=== PATIENT | female | born 1980 | race Caucasian/White ===

== ENCOUNTER 2018-03-03 19:04 | Observation (INO) ==
[2018-03-03 19:27] VITALS: TEMP 98.7
--- NOTE | 2018-03-03 20:55 | ECG ---
Date Performed: 03/03/2018 Time Performed: 19:32:05 PTAGE: 37 years EKG: Sinus rhythm WITH SINUS ARRHYTHMIA POSSIBLE LEFT ATRIAL ENLARGEMENT NONDIAGNOSTIC INFERIOR Q WAVES BORDERLINE ECG PREVIOUS TRACING : 06/20/2010 12.00 Compared to previous tracing, heart rate has increased. DOCTOR: Junito Boykin Interpretating Date/Time 03/03/2018 20:54:10
[2018-03-03 22:22] LABS: Baso % (Auto) 0.4 % (0.0-2.0); Eos % (Auto) 0.1 % (0.0-4.0); Hemoglobin 13.8 gm/dL (11.6-15.3); Lymph # (Auto) 1.9 th/mm3 (1.0-4.8); Lymph % (Auto) 19.2 % (9.0-44.0); Mean Corpuscular HGB Conc 33.8 % (32.0-36.0); Mean Corpuscular Hemoglobin 28.8 pg (27.0-34.0); Mean Corpuscular Volume 85.4 fL (80.0-100.0); Mean Platelet Volume 7.8 fL (7.0-11.0); Mono # (Auto) 0.6 th/mm3 (0.0-0.9); Mono % (Auto) 5.6 % (0.0-8.0); Neut # (Auto) 7.5 th/mm3 (1.8-7.7); Neut % (Auto) 74.7 % (16.0-70.0); Platelet Count 340 th/mm3 (150-450); White Blood Count 10.1 th/mm3 (4.0-11.0)
[2018-03-03 22:29] LABS: Activated Partial Thrombo Time 29.5 sec (24.3-30.1); Prothrombin Time 10.2 sec (9.8-11.6)
[2018-03-03 22:54] LABS: Alanine Aminotransferase 17 U/L (10-53); Albumin 4.1 g/dL (3.4-5.0); Anion Gap 9 meq/L (5-15); Aspartate Aminotransferase 14 U/L (15-37); Blood Urea Nitrogen 7 mg/dL (7-18); Calcium 8.9 mg/dL (8.5-10.1); Carbon Dioxide 23.7 meq/L (21.0-32.0); Chloride 108 meq/L (98-107); Glomerular Filtration Rate 60 mL/min (>89); Glucose,Random 234 mg/dL (74-106); Magnesium 2.1 mg/dL (1.5-2.5); Potassium 3.8 meq/L (3.5-5.1); Sodium 141 meq/L (136-145)
--- NOTE | 2018-03-03 22:56 | XR ---
EXAM DATE: 03/03/2018 10:41 PM EDT AGE/SEX: 37 years / Female INDICATIONS: Shortness of breath. Chest pain. CLINICAL DATA: This is the patient's initial encounter. Patient reports that signs and symptoms have been present for 1 day and indicates a pain score of 4/10. MEDICAL/SURGICAL HISTORY: Hypertension. Diabetes mellitus type I. Smoker. None. COMPARISON: No prior exams available for comparison. FINDINGS: A single AP view of the chest demonstrates the lungs to be symmetrically aerated without evidence of mass, infiltrate or effusion. The cardiomediastinal contours are unremarkable. Osseous structures a re intact. CONCLUSION: No acute cardiopulmonary disease. Electronically signed by: Carlos Oseguera MD 03/03/2018 10:54 PM EDT
[2018-03-03 22:58] LABS: Alkaline Phosphatase 97 U/L (45-117); Total Protein 7.7 g/dL (6.4-8.2)
[2018-03-03] MEDS ORDERED: Sod Chloride 0.9% Inj 1,000 ML IV.SIG ONE (23:08)
--- NOTE | 2018-03-03 23:25 | ED ---
HPI General Chief Complaint: Chest Pain Stated Complaint: chest pressure Time Seen by Provider: 03/03/18 21:56 Source: patient Limitations: no limitations History of Present Illness HPI narrative: The patient is a 37 year old female who presents to the [facility] emergency department with a history of chest pain in the center of her chest and left side of the chest that she reports began again earlier today just before sunrise. She reports that the pain comes and goes. She reports that the pain is a pressure and tightening sensation. She reports that it comes even when she is resting. She reports that she feels like her heart is also racing. She reports having associated shortness of breath and nausea with this. She denies having any radiation of the pain. She reports that she has had diaphoresis today. The patient reports that the symptoms have gradually been worsening over the last 2 weeks, however intermittently she has had similar symptoms since 2014 when she was diagnosed with type 1 diabetes mellitus and was in DKA. Patient reports that her blood sugar was high earlier today at 260. She reports that she is on 7030 insulin 15 units twice a day. She last administered 15 units at approximately 8 PM. Her primary care physician is Dr. Vivar. She denies any prior history of cardiac disease. She cannot recall if she has ever had a stress test previously, however she has been diagnosed with mitral valve prolapse. On review of systems otherwise, the patient denies having any known recent fevers, cough, congestion, neck pain, abdominal pain, diarrhea, urinary symptoms, or neurologic symptoms. She reports that she did have 2 episodes of vomiting earlier today. The patient reports feeling lightheaded when these symptoms occur. LMP: One week ago. Complete Quality Measures for STEMI Alert Patients Related Data Home Medications Medication Instructions Recorded Confirmed duloxetine 30 mg PO BID 03/03/18 03/03/18 gabapentin 300 mg PO DAILY PRN 03/03/18 03/03/18 hydroxyzine pamoate 50 mg PO DAILY 03/03/18 03/03/18 quetiapine [Seroquel] 300 mg PO DAILY 03/03/18 03/03/18 Allergies Allergy/AdvReac Type Severity Reaction Status Date / Time penicillin G Allergy Unknown Hives Verified 03/03/18 19:23 Review of Systems ROS: all other systems reviewed are negative (Except for that which was mentioned in the HPI.) FORMERLY [facility], [facility] Medical History Medical History Diabetes (Acute) Mitral valve prolapse (Acute) Surgical History Surgical History S/P surgical manipulation of ankle joint (Acute) Social History Social History Substance History: Active Abuse Second Hand Smoke Exposure: No Smoking Status: Never smoker How Often Do You Have a Drink Containing Alcohol: Monthly or less Recent Travel in [facility] within the Last 8 Weeks: No Recent Out of Country Travel within the Last 8 Weeks: No Substance Abuse Detail Marijuana: Substance Use Status: Active Route Used Substance Abuse: Inhalation Immunization History Tetanus Immunization: <5 Years Hx Influenza Vaccine This Season: No Exam Const General: cooperative, no acute distress and well developed Nutritional Appearance: well nourished Orientation: alert, awake and oriented x3 HENMT Head: normocephalic and atraumatic Nose: no nasal discharge and no epistaxis Mouth: moist mucous membranes Throat: posterior oropharynx normal and uvula midline Eyes Sclera: normal sclerae Pupils: PERRL Neck Neck: no meningeal signs, trachea midline and no JVD Resp Effort & Inspection: no use of accessory muscles Auscultation: clear to auscultation bilaterally Cardio Rate: tachycardic (Sinus tachycardia in the 1 teens, no pulse deficits to the extremities on simultaneous auscultation and palpation of her radial artery.) Rhythm: regular rhythm Heart Sounds: no gallops, no murmurs and no rubs GI Inspection: non-distended Palpation: soft, no hepatosplenomegaly and nontender Auscultation: normal bowel sounds Back/Spine/Pelvis Back: no CVA tenderness Skin General: dry skin (warm) Neuro General: alert, awake and oriented x3 Cranial Nerves: other (No facial asymmetry.) Speech: speech normal Motor: no movement abnormalities noted Extrem General: normal to inspection (No calf tenderness on palpation. Negative Homans sign. No palpable cords. 2+ pulses to all 4 extremities.), no clubbing , no cyanosis and no edema Psych Mood: congruent mood Affect: normal affect Judgment: judgment good Course Initial Documented Vital Signs Temperature 98.7 F 03/03/18 19:23 Pulse Rate 88 03/03/18 19:23 Respiratory Rate 16 03/03/18 19:23 Blood Pressure 151/90 H 03/03/18 19:23 Pulse Oximetry 95 03/03/18 19:23 Last Documented Vital Signs Temperature 98.7 F 03/03/18 19:23 Pulse Rate 98 H 03/03/18 23:05 Respiratory Rate 18 03/03/18 23:05 Blood Pressure 126/79 03/03/18 23:05 Pulse Oximetry 98 03/03/18 23:05 Medical Decision Making MDM Narrative Medical decision making narrative: During the course of the patient's emergency department visit, the patient's history, examination, and differential diagnosis were reviewed with the patient. The patient was placed on a monitoring coordinator with oximetry and frequent blood pressure monitoring. The patient had IV access obtained and blood work sent for analysis. A diagnostic evaluation was started regarding the patient's chest pain, palpitations, reported lightheaded sensation. The patient was initially provided aspirin 324 mg p.o. 1, nitroglycerin sublingual 1, normal saline 1 L IV fluid bolus. The patient's diagnostic evaluation is remarkable for a white count of 10.1, platelets 340, neutrophils 74.7, hemoglobin 13.7, PT 10.2, PTT 29.5, chemistry is remarkable for troponin I of less than 0.02, glucose 234, lipase 501, creatinine 1.04, GFR 60, chloride 108, AST 14. An additional normal saline IV fluid bolus was administered. Magnesium was found to be within normal limits. TSH was within normal limits. The patient's chest x-ray showed no evidence of acute cardiopulmonary disease. The patient was agreeable with the plan to proceed with admission to the chest pain center for rule out serial cardiac enzyme protocol followed by stress testing. The patient's results were discussed with the patient, including the plan of care. I explained that further testing and/ or monitoring is indicated based on the patient's history, examination, and/ or laboratory findings. Therefore, I recommended admission for additional evaluation. The patient expressed understanding and was agreeable with this plan. The patient was admitted to the hospital in stable condition and sent to a bed under the care of the [facility]. Medical Screen Exam Complete: Yes Emergency Medical Condition: Yes Differential Diagnosis Differential Diagnosis: Acute coronary syndrome, versus dehydration, versus DKA , versus pulmonary embolism, versus pneumonia Medical Records Medical records reviewed: Yes I reviewed the patient's medical records. POC Test Results POC Urine Results: Negative Lab Data Lab results reviewed: Yes I reviewed the patient's lab results. Result diagrams: 03/03/18 22:00 03/03/18 22:00 Lab Results 03/03/18 03/03/18 03/03/18 Range/Units 22:00 22:00 22:00 WBC 10.1 (4.0-11.0) th/mm3 RBC 4.80 (4.00-5.30) mil/mm3 Hgb 13.8 (11.6-15.3) gm/dL Hct 41.0 (35.0-46.0) % MCV 85.4 (80.0-100.0) fL MCH 28.8 (27.0-34.0) pg MCHC 33.8 (32.0-36.0) % RDW 13.0 (11.6-17.2) % Plt Count 340 (150-450) th/mm3 MPV 7.8 (7.0-11.0) fL Neut % (Auto) 74.7 H (16.0-70.0) % Lymph % (Auto) 19.2 (9.0-44.0) % Hardee % (Auto) 5.6 (0.0-8.0) % Eos % (Auto) 0.1 (0.0-4.0) % Baso % (Auto) 0.4 (0.0-2.0) % Neut # (Auto) 7.5 (1.8-7.7) th/mm3 Lymph # (Auto) 1.9 (1.0-4.8) th/mm3 Hardee # (Auto) 0.6 (0.0-0.9) th/mm3 Eos # (Auto) 0.0 (0.0-0.4) th/mm3 Baso # (Auto) 0.0 (0.0-0.2) th/mm3 WBC Differential . Differential Comment Auto diff final PT (9.8-11.6) sec INR Ratio APTT (24.3-30.1) sec Sodium (136-145) meq/L Potassium (3.5-5.1) meq/L Chloride (98-107) meq/L Carbon Dioxide (21.0-32.0) meq/L Anion Gap (5-15) meq/L BUN (7-18) mg/dL Creatinine (0.50-1.00) mg/dL Estimated GFR (>89) mL/min Random Glucose (74-106) mg/dL Calcium (8.5-10.1) mg/dL Magnesium (1.5-2.5) mg/dL Total Bilirubin (0.2-1.0) mg/dL AST (15-37) U/L ALT (10-53) U/L Alkaline Phosphatase (45-117) U/L Troponin I (0.02-0.05) ng/mL B-Natriuretic Peptide 10 (0-100) pg/mL Total Protein (6.4-8.2) g/dL Albumin (3.4-5.0) g/dL Lipase 501 H (73-393) U/L TSH (0.358-3.740) uIU/mL 03/03/18 03/03/18 03/03/18 Range/Units 22:00 22:00 22:00 WBC (4.0-11.0) th/mm3 RBC (4.00-5.30) mil/mm3 Hgb (11.6-15.3) gm/dL Hct (35.0-46.0) % MCV (80.0-100.0) fL MCH (27.0-34.0) pg MCHC (32.0-36.0) % RDW (11.6-17.2) % Plt Count (150-450) th/mm3 MPV (7.0-11.0) fL Neut % (Auto) (16.0-70.0) % Lymph % (Auto) (9.0-44.0) % Hardee % (Auto) (0.0-8.0) % Eos % (Auto) (0.0-4.0) % Baso % (Auto) (0.0-2.0) % Neut # (Auto) (1.8-7.7) th/mm3 Lymph # (Auto) (1.0-4.8) th/mm3 Hardee # (Auto) (0.0-0.9) th/mm3 Eos # (Auto) (0.0-0.4) th/mm3 Baso # (Auto) (0.0-0.2) th/mm3 WBC Differential Differential Comment PT 10.2 (9.8-11.6) sec INR 1.0 Ratio APTT 29.5 (24.3-30.1) sec Sodium 141 (136-145) meq/L Potassium 3.8 (3.5-5.1) meq/L Chloride 108 H (98-107) meq/L Carbon Dioxide 23.7 (21.0-32.0) meq/L Anion Gap 9 (5-15) meq/L BUN 7 (7-18) mg/dL Creatinine 1.04 H (0.50-1.00) mg/dL Estimated GFR 60 L (>89) mL/min Random Glucose 234 H (74-106) mg/dL Calcium 8.9 (8.5-10.1) mg/dL Magnesium 2.1 (1.5-2.5) mg/dL Total Bilirubin 0.4 (0.2-1.0) mg/dL AST 14 L (15-37) U/L ALT 17 (10-53) U/L Alkaline Phosphatase 97 (45-117) U/L Troponin I Less than 0.02 L (0.02-0.05) ng/mL B-Natriuretic Peptide (0-100) pg/mL Total Protein 7.7 (6.4-8.2) g/dL Albumin 4.1 (3.4-5.0) g/dL Lipase (73-393) U/L TSH 1.050 (0.358-3.740) uIU/mL Imaging Data Radiologist's impression: Chest X-Ray 03/03/18 21:57 CONCLUSION: No acute cardiopulmonary disease. ECG Data Attestation: I personally reviewed and interpreted this ECG as follows: Interpretation: The patient had an EKG done on arrival that shows a normal sinus rhythm with a sinus arrhythmia, heart rate of 87, QRS duration 90 ms, QTC [address] segment elevation. T waves are inverted in V1. Discharge Plan Discharge Disposition Patient Disposition: 30 Still Patient Discharge Details Diagnosis: Chest pain, rule out acute myocardial infarction Physicians Team ED Provider: Naty Larose Primary Care Provider: Nicho Vivar Attending Provider: Renetta Rodriguez ED Status: Admitted Observation Patient
[2018-03-04] MEDS ORDERED: Sod Chloride 0.9% Inj 1,000 ML IV.SIG ONE (01:12)
[2018-03-04] MEDS ORDERED: Acetaminophen 500 MG Tablet PO PRN (02:44)
[2018-03-04] MEDS ORDERED: Sod Chloride 0.9% Inj 1,000 ML IV.CONT SCH (02:45)
[2018-03-04 04:21] LABS: Creatine Kinase 100 U/L (26-192)
[2018-03-04 06:48] LABS: Creatine Kinase 97 U/L (26-192)
[2018-03-04 08:05] VITALS: BP 146/92; PULSE 76; RESP 16; O2SAT 100
[2018-03-04] MEDS ORDERED: Famotidine 20 MG Tablet PO SCH (09:00)
--- NOTE | 2018-03-04 09:23 | P.HPCA ---
History of Present Illness Primary Care Physician: Nicho Vivar Chief Complaint: Chest pain History of Present Illness: This is a 37-year-old female with history of diabetes and possible hyperlipidemia that presents to ED with complaint of chest discomfort and palpitations. Patient states that she has had the symptoms for couple weeks. Intermittently. Lasting usually 5-10 minutes but last evening she had an episode lasting about 4 hours. She has not noticed to be associate with activity. She has really been short of breath. Rarely nauseous. Denies diaphoresis. States she had a cardiac evaluation in the past but this is 20 years ago which would have put her in her teens. Cannot recall ever having a stress test. States she was diagnosed as a teenager with mitral valve prolapse. Diagnosed with diabetes 3 years ago which time she is found to be in ketoacidosis. Currently denies complaints. Denies . Non-smoker. Denies family history of CAD. - Diagnosis (1) Chest pain (2) Palpitations (3) Diabetes Review of Systems General: Patient denies fevers, chills, and recent travel. HEENT: Patient denies headache, sore throat, difficulty swallowing. Cardiovascular: Has the chest discomfort as mentioned above. Has sensation of heart beating rapidly. Denies sensation of heart beating irregularly. No syncope. Respiratory: Rarely short of breath. Denies inspirational chest discomfort. Denies coughing wheezing or hemoptysis. GI: Rare nausea. Patient denies vomiting, diarrhea, abdominal pain, bloody stools. Musculoskeletal: Patient denies joint pain or edema. Denies calf pain or edema. Neurovascular: Patient denies numbness, tingling, weakness in extremities. Denies headache. Endocrine: Denies polyuria and polydipsia. Hematologic: Denies easy bruising. Skin: Denies rash or itching. PMFSH - History History Provided By: Patient - Medical History Medical History: Medical History (Last Reviewed 03/03/18 @ 23:22 by Naty Larose MD) Diabetes Mitral valve prolapse - Surgical History Surgical History: Surgical History (Last Reviewed 03/03/18 @ 23:22 by Naty Larose MD) S/P surgical manipulation of ankle joint - Tobacco History Second Hand Smoke Exposure: No Tobacco Use In Past 30 Days: No Smoking Status: Never smoker Tobacco Type: Cigarettes - Alcohol History How Often Do You Have a Drink Containing Alcohol: 2 to 4 times a month - Substance Use History Substance History: Active Abuse - Substance Use Type Marijuana Type: NARCOTICS, BENZOS, MARIJUANA Status: Active Route Used: By Mouth, Inhalation Reason for Use: Calm Down, Get High - Travel History Recent Travel in the [place] Within the Last 8 Weeks: No Recent Travel Out of the Country Within the Last 8 Weeks: No - Immunization History Tetanus Immunization: <5 Years Hx Influenza Vaccine This Season: No Medications and Allergies Active Medications: Active Medications Acetaminophen (Tylenol) 500 mg PO Q4H PRN PRN Reason: HEADACHE Famotidine (Pepcid) 20 mg PO BID NADER Sodium Chloride (Ns Inj) 1,000 mls @ 100 mls/hr IV.CONT .Q10H NADER Last Admin: 03/04/18 03:57 Dose: 100 mls/hr Sodium Chloride (Ns Flush) 2 ml IV.FLUSH UNSCH PRN PRN Reason: FLUSH AFTER USING IV ACCESS Sodium Chloride (Ns Flush) 2 ml IV.FLUSH BID NADER Sodium Chloride (Ns Flush) 2 ml IV.FLUSH PRN PRN PRN Reason: FLUSH AFTER USING IV ACCESS Allergies Allergy/AdvReac Type Severity Reaction Status Date / Time penicillin G Allergy Unknown Hives Verified 03/03/18 19:23 Home Medications Medication Instructions Recorded Confirmed Type duloxetine 30 mg PO BID 03/03/18 03/03/18 History gabapentin 300 mg PO DAILY PRN 03/03/18 03/03/18 History hydroxyzine pamoate 50 mg PO DAILY 03/03/18 03/03/18 History quetiapine [Seroquel] 300 mg PO DAILY 03/03/18 03/03/18 History Exam Vital signs: Vital Signs 03/03/18 19:23 03/03/18 21:57 03/03/18 23:05 Temperature 98.7 F Pulse Rate 88 98 H Respiratory Rate 16 18 Blood Pressure 151/90 H Blood Pressure [Left Arm] 126/79 Blood Pressure [Right Arm] 132/80 Pulse Oximetry 95 98 98 03/04/18 03:05 03/04/18 04:40 03/04/18 05:34 Temperature 98.7 F 98.7 F Pulse Rate 78 78 Respiratory Rate 18 18 18 Blood Pressure 117/74 117/74 Blood Pressure [Left Arm] Blood Pressure [Right Arm] Pulse Oximetry 97 97 03/04/18 07:52 03/04/18 08:00 Temperature 98.7 F Pulse Rate 68 76 Respiratory Rate 16 Blood Pressure 146/92 H Blood Pressure [Left Arm] Blood Pressure [Right Arm] Pulse Oximetry 100 Intake & Output 03/03/18 03/04/18 03/04/18 18:59 06:59 18:59 Intake Total 1999 Balance 1999 Weight 72.575 kg Intake: IV 1999 NS Inj 1,000 ML @ Wide Open IV. 1999 SIG BOLUS ONE Rx#:[id number] Other: # Voids 1 Narrative: GENERAL: This is a well-nourished, well-developed patient, in no apparent distress. Patient speaks in clear complete sentences. Patient is pleasant. HEENT: Head is atraumatic and normocephalic. Neck is supple without lymphadenopathy and trachea is midline. No JVD or carotid bruits. CARDIOVASCULAR: Regular rate and rhythm without murmurs, gallops, or rubs. RESPIRATORY: Clear to auscultation. Breath sounds equal bilaterally. No wheezes , rales, or rhonchi. Chest wall is nontender. No use of accessory muscles. GASTROINTESTINAL: Abdomen is nontender, nondistended. Abdomen soft. No obvious pulsatile mass or bruit. No CVA tenderness. Strong femoral pulses bilaterally. Normal bowel sounds in all quadrants. MUSCULOSKELETAL: Patient is moving upper and lower extremities freely. No calf tenderness or edema, no Homans sign. Strong pulses in upper and lower extremities. NEUROLOGICAL: Patient is alert and oriented. Cranial nerves 2-12 are grossly intact. No focal deficits and speech is clear. SKIN: No rash and turgor is normal. Results 03/03/18 22:00 03/03/18 22:00 Cardiac Enzymes 03/03/18 03/03/18 03/04/18 Range/Units 22:00 22:00 03:45 AST 14 L (15-37) U/L Troponin I Less than 0.02 L Less than 0.02 L (0.02-0.05) ng/mL B-Natriuretic Peptide 10 (0-100) pg/mL 03/04/18 Range/Units 05:50 AST (15-37) U/L Troponin I Less than 0.02 L (0.02-0.05) ng/mL B-Natriuretic Peptide (0-100) pg/mL Coagulation 03/03/18 03/03/18 Range/Units 22:00 22:00 PT 10.2 (9.8-11.6) sec APTT 29.5 (24.3-30.1) sec B-Natriuretic Peptide 10 (0-100) pg/mL CBC 03/03/18 Range/Units 22:00 WBC 10.1 (4.0-11.0) th/mm3 RBC 4.80 (4.00-5.30) mil/mm3 Hgb 13.8 (11.6-15.3) gm/dL Hct 41.0 (35.0-46.0) % Plt Count 340 (150-450) th/mm3 Neut # (Auto) 7.5 (1.8-7.7) th/mm3 Lymph # (Auto) 1.9 (1.0-4.8) th/mm3 Mccracken # (Auto) 0.6 (0.0-0.9) th/mm3 Eos # (Auto) 0.0 (0.0-0.4) th/mm3 Baso # (Auto) 0.0 (0.0-0.2) th/mm3 Comprehensive Metabolic Panel 03/03/18 Range/Units 22:00 Sodium 141 (136-145) meq/L Potassium 3.8 (3.5-5.1) meq/L Chloride 108 H (98-107) meq/L Carbon Dioxide 23.7 (21.0-32.0) meq/L BUN 7 (7-18) mg/dL Creatinine 1.04 H (0.50-1.00) mg/dL Calcium 8.9 (8.5-10.1) mg/dL AST 14 L (15-37) U/L ALT 17 (10-53) U/L Alkaline Phosphatase 97 (45-117) U/L Total Protein 7.7 (6.4-8.2) g/dL Albumin 4.1 (3.4-5.0) g/dL Intake and Output 03/03/18 03/04/18 03/04/18 22:59 06:59 14:59 Intake Total 1999 Balance 1999 Intake: IV 1999 NS Inj 1,000 ML @ Wide Open IV. 1999 SIG BOLUS ONE Rx#:[id number] Other: # Voids 1 Weight 72.575 kg EKG interpretations - EKG EKG shows: sinus rhythm (EKGs are sinus rhythm without significant ST segment depressions or elevations.) Caprini VTE Risk Assessment Caprini VTE Risk Assessment: No/Low Risk (score <= 1) Caprini Risk Assessment Model: Point Value = 1 Point Value = 2 Point Value = 3 Point Value = 5 Age 41-60 Minor surgery BMI > 25 kg/m2 Swollen legs Varicose veins or History of unexplained or recurrent spontaneous Oral contraceptives or hormone replacement Sepsis (< 1 month) Serious lung disease, including pneumonia (< 1 month) Abnormal pulmonary function Acute myocardial infarction Congestive heart failure (< 1 month) History of inflammatory bowel disease Medical patient at bed rest Age 61-74 Arthroscopic surgery Major open surgery (> 45 min) Laparoscopic surgery (> 45 min) Malignancy Confined to bed (> 72 hours) Immobilizing plaster cast Central venous access Age >= 75 History of VTE Family history of VTE Factor V Leiden Prothrombin [id number] Lupus anticoagulant Anticardiolipin antibodies Elevated serum homocysteine Heparin-induced thrombocytopenia Other congenital or acquired thrombophilia Stroke (< 1 month) Elective arthroplasty Hip, pelvis, or leg fracture Acute spinal cord injury (< 1 month) Prophylaxis Regimen: Total Risk Factor Score Risk Level Prophylaxis Regimen 0-1 Low Early ambulation 2 Moderate Order ONE of the following: *Sequential Compression Device (SCD) *Heparin 5000 units SQ BID 3-4 Higher Order ONE of the following medications: *Heparin 5000 units SQ TID *Enoxaparin/Lovenox 40 mg SQ daily (WT < 150 kg, CrCl > 30 mL/min) *Enoxaparin/Lovenox 30 mg SQ daily (WT < 150 kg, CrCl > 10-29 mL/min) *Enoxaparin/Lovenox 30 mg SQ BID (WT < 150 kg, CrCl > 30 mL/min) AND/OR *Sequential Compression Device (SCD) 5 or more Highest Order ONE of the following medications: *Heparin 5000 units SQ TID (Preferred with Epidurals) *Enoxaparin/Lovenox 40 mg SQ daily (WT < 150 kg, CrCl > 30 mL/min) *Enoxaparin/Lovenox 30 mg SQ daily (WT < 150 kg, CrCl > 10-29 mL/min) *Enoxaparin/Lovenox 30 mg SQ BID (WT < 150 kg, CrCl > 30 mL/min) AND *Sequential Compression Device (SCD) Assessment and Plan - Assessment (1) Chest pain Code(s): R07.9 - Chest pain, unspecified Status: Acute (2) Palpitations Code(s): R00.2 - Palpitations Status: Acute (3) Diabetes Code(s): E11.9 - Type 2 diabetes mellitus without complications Status: Acute - Plan * Chest pain: Patient had serial cardiac enzymes and EKGs were ruling out purposes. She was seen by Dr. Raza Henson of cardiology in the chest pain center. She will undergo a Kenroy protocol ETT. She will be discharged home if her stress test is nonischemic. Of note, a lipase was obtained in the ED and was mildly elevated at 501 however a repeated lipase in the chest pain center this morning is 101. No further evaluation. Follow up PCP. Return to ED for interval issues. * Palpitations: Patient's been in sinus rhythm while in chest pain center. Follow-up with PCP. * Hyperlipidemia: Patient states she has hyperlipidemia but is on medication. Patient has been instructed on importance of being on a statin medicine with a history of diabetes regardless of lipid status. She should be on a statin unless there is a contraindication. * Diabetes: Patient takes insulin at home. She will be on sliding scale insulin coverage while in chest pain center. Resume medication at home. Follow diabetic diet. Patient is stable at this time. She is agreeable to this plan. H&P: Quality - VTE Deep Vein Thrombosis/Pulmonary Embolism Present on Admission: No
[2018-03-04] MEDS ORDERED: Gabapentin 300 MG Capsule PO PRN (11:09)
--- NOTE | 2018-03-04 11:30 | ECG ---
Date Performed: 03/04/2018 Time Performed: 05:55:32 PTAGE: 37 years EKG: Sinus rhythm POSSIBLE LEFT ATRIAL ENLARGEMENT BORDERLINE ECG PREVIOUS TRACING : 03/04/2018 03.46 Since previous tracing, no significant change noted DOCTOR: Raza Henson Interpretating Date/Time 03/04/2018 11:28:09
--- NOTE | 2018-03-04 11:31 | ECG ---
Date Performed: 03/04/2018 Time Performed: 03:46:59 PTAGE: 37 years EKG: Sinus rhythm POSSIBLE LEFT ATRIAL ENLARGEMENT BORDERLINE RIGHT AXIS DEVIATION BORDERLINE ECG PREVIOUS TRACING : 03/03/2018 22.27 Since previous tracing, no significant change noted DOCTOR: Raza Henson Interpretating Date/Time 03/04/2018 11:28:56
--- NOTE | 2018-03-04 11:33 | ECG ---
Date Performed: 03/03/2018 Time Performed: 22:27:21 PTAGE: 37 years EKG: SINUS TACHYCARDIA WITH SHORT CT INTERVAL POSSIBLE LEFT ATRIAL ENLARGEMENT ABNORMAL RHYTHM E CG PREVIOUS TRACING : 03/03/2018 19.32 Since previous tracing, no significant change noted DOCTOR: Raza Henson Interpretating Date/Time 03/04/2018 11:30:48
--- NOTE | 2018-03-04 11:37 | TR ---
Date Performed: 03/04/2018 Time Performed: 10:22:50 DOCTOR: Raza Henson DRUG LIST: CLINICAL HISTORY: CHEST PAIN REASON FOR TEST: REASON FOR ENDING: OBSERVATION: CONCLUSION: KANNAN PROTOCOL ETT. NO CP. TEST STOPPED AFTER EXCEEDING GOAL HR SECONDARY TO SOB AND LEG FATIGUE.Maximum FA=808 % Max HR Achieved=90.0% Maximum PM=470/82 Total Exercise Time=7:01 COMMENTS: Patient exercised using the Kannan protocol. No electrocardiographic changes were seen to suggest ischemia. Hemodynamic response to exercise was normal. No significant arrhythmia was prese nt.
[2018-03-04] MEDS ORDERED: Insulin NovoLIN Regular Correctional Sugar Inj SQ SCH (12:00)
== END 2018-03-04 11:59 | disposition home or self-care (01) ==
LOC: NEPC 19:04 → NEDA 19:04 → NEPGCP 19:04 → NEDA 03-04 03:30 → NEPGCP 03-04 04:18
PROVIDERS: ADMIT Internal Medicine Interventional Cardiology; ATTEND Internal Medicine Interventional Cardiology